=== PATIENT | female | born 1955 | race Caucasian/White ===

== ENCOUNTER 2017-01-27 20:47 | Inpatient (IN) | payer OTHER ==
[~2017-01-27] VITALS: Ht 157.5 cm; Wt 86.2 kg
--- NOTE | ~2017-01-27 | HP ---
Unit #: [id number] #: [id number] Patient: PAYAL RAUSCH [id number] [address] [place], [place] [address] [id number] I MR#: [id number] NAME: PAYAL RAUSCH ROOM: 335 Age: 61 Sex: F Admission Date: 01/28/2017 : 1955 Attending Physician: Gilda Rose M.D. Primary Care Physician: No Primary Care Physician HISTORY AND PHYSICAL CHIEF COMPLAINT Vertigo, nausea, vomiting, headache with uncontrolled hypertension and diabetes. HISTORY This pleasant 61-year-old female with hypertension and AODM, out of medications for the past six months, is admitted for vertigo. The patient was in her usual state of health until 5:30 last evening. While at work, she developed sudden onset of vertigo with nausea and vomiting. Around 6 p.m. developed a generalized headache. Went to her car and sat for some time as she was unable to drive. I am told that a co-worker called an ambulance and the patient was brought to this facility. She looked to be quite ill initially and quite diaphoretic. Blood pressure 180/90. She was treated with Zofran, bolused with IV fluids, given 10 mg of IV Decadron without improvement. She had a stat CTA and CT of her head. She was also seen by the [facility]. She is currently feeling somewhat improved but is still experiencing headache, nausea and vomiting. The vertigo is worse with movement. CT did show old lacunar CVAs but nothing new. In addition to the above, the patient does have severe dental caries and is experiencing dental pain. Needs referral to a dentist. PAST MEDICAL HISTORY 1. Essential hypertension. 2. AODM. 3. Benign cyst removed from the left breast. ALLERGIES None. HOME MEDICATIONS None. The patient was previously taking metformin 500 mg p.o. b.i.d. and lisinopril 20 mg daily. Has been out of these medications for the past six months. FAMILY HISTORY CVA. SOCIAL HISTORY The patient lives with her daughter and son-in-law. She smokes one pack per day of tobacco, does not drink alcohol. REVIEW OF SYSTEMS Unit #: [id number] #: [id number] Patient: PAYAL RAUSCH Notable for headache, nausea, vomiting, vertigo, AODM, dental pain, tobacco use, cyst removed from the breast. All other systems were reviewed and otherwise negative. PHYSICAL EXAMINATION GENERAL APPEARANCE: 61-year-old, moderately obese female, who looks to be uncomfortable. VITAL SIGNS: Temperature 97.4, pulse 86, respirations 20, blood pressure 180/90. O2 saturation is 94% on room air. HEENT: Eyes PERRLA. Extraocular muscles are intact. No nystagmus. TMs are clear bilaterally. Oropharynx reveals significant dental caries. NECK: Supple without adenopathy or thyromegaly. CHEST: Clear. CARDIAC: Normal S1 and S2 without S3, S4 or murmur. ABDOMEN: Bowel sounds are present. No hepatosplenomegaly, tenderness or masses. EXTREMITIES: Without clubbing, cyanosis or edema. Pedal pulses are present. No ulcers on the feet. NEUROLOGIC EXAM: The patient is awake, alert, oriented. Her cranial nerves are intact. She has slight slurring of her speech but I think this may be due to her dental pain. She has +5 out of 5 strength throughout. Normal rapid alternating movements. Negative pronator drift. I did not sit the patient up due to her vertigo, however. DIAGNOSTIC STUDIES LABORATORY: Admission labs - hematocrit 43.8, white blood count 15.4, normal platelet count. SMA-12 - glucose 242, potassium 3.4. Cardiac markers are negative. IMAGING: CTA of the head and neck show no thrombosis or occlusion. There is some narrowing of the right vertebral artery, mild plaquing of the carotid bulbs and proximal internal carotid arteries. CTA of the head shows scattered small vessel ischemic disease with chronic lacunar infarcts in the bibasilar ganglia and left cerebellar hemisphere. CARDIOVASCULAR: EKG shows a sinus rhythm, rate 64 with T wave inversions noted V1 through V5 without previous EKG for comparison. ASSESSMENT 1. Vertigo, nausea, vomiting and headache: This may represent inner ear pathology such as acute labyrinthitis. Rule out central etiology. The patient was seen by the [facility] in the ER. 2. Uncontrolled hypertension: The patient ran out of her medicines. 3. Uncontrolled diabetes mellitus: Patient was out of her medicines. 4. Dental caries with dental pain. 5. Smoking. PLANS 1. IV fluids and supportive treatment. Will give Antivert and Zofran. Will hold further Decadron given hyperglycemia. 2. Sliding scale insulin. At the time of discharge, the patient will need prescriptions for metformin. 3. Restart lisinopril. Patient will need a prescription at the time of discharge as well. 4. Smoking cessation counseling. 5. MRI and neurology to see. Aspirin is being started in the ER. Unit #: [id number] #: [id number] Patient: PAYAL RAUSCH 6. SCDs for DVT prophylaxis. 7. Amoxicillin. Will given patient names of dentists. She is self pay. 8. Repeat cardiac enzymes. 9. SCDs for DVT prophylaxis. 10. Further workup depending on above. Dictated by Jaylen Smart/df TD: 01/28/2017 05:31 JOB #: [id number] HISTORY AND PHYSICAL Page 1 of 1 X Gilda Rose MD X HISTORY AND PHYSICAL
--- NOTE | ~2017-01-27 | EKG ---
PATIENT: PAYAL RAUSCH UNIT #: [id number] Ventricular Rate: 64 BPM Atrial Rate: 64 BPM P-R Interval: 170 ms QRS Duration: 94 ms Q-T Interval: 468 ms QTC Calculation(Bezet): 482 ms P [place]: 48 degrees Calculated R [place]: -9 degrees Calculated T [place]: 27 degrees Diagnosis Line: Sinus rhythm with marked sinus arrhythmia Diagnosis Line: Minimal voltage criteria for LVH, may be normal Diagnosis Line: variant Diagnosis Line: ST and T wave abnormality, consider anterior Diagnosis Line: ischemia Diagnosis Line: Prolonged QT Diagnosis Line: Abnormal ECG Diagnosis Line: No previous ECGs available Diagnosis Line: Confirmed by LILIA RILEY MD ([id number]) on 01/29/2017 Diagnosis Line: 8:26:20 AM INTERPRETING MD: ROSEMARY TELLES
--- NOTE | ~2017-01-27 | DS ---
Unit #: [id number] #: [id number] Patient: PAYAL RAUSCH [id number] [address] [address] [id number] I MR#: [id number] NAME: PAYAL RAUSCH ROOM: 335 Age: 61 Sex: F Admission Date: 01/28/2017 : 1955 Discharge Date: 01/29/2017 Attending Physician: Melissa Adamson M.D. Primary Care Physician: No Primary Care Physician DISCHARGE SUMMARY REASON FOR ADMISSION Vertigo, nausea and vomiting, intractable headache. HISTORY OF PRESENT ILLNESS/HOSPITAL COURSE The patient is a very pleasant 61-year-old female who moved from [place] approximately one year ago. Off and on she has been unable to get her medications secondary to lack of insurance. She had missed the window at her employer for open enrolling. She stated that she was trying to get by taking some of her medications on an ajieh-kcupz-kos basis. She apparently had gone to work. She began feeling dizzy. The room began to spin around her. She sat in her car for approximately three hours waiting for it to resolve. It did not. Subsequently EMS services were called. The patient was brought to the hospital for further evaluation. The patient underwent a CT of the head noncontrast, which did not show any acute process. Consultation was subsequently placed to neurology services. Dr. Jett and associates saw and evaluated the patient. Through this hospital course the patient did undergo an MRI of the brain without contrast for possible rule out of cerebrovascular accident. MRI of the brain did not show any evidence of any recent ischemic insult. There was a moderate probable sequelae of small vessel disease which was noted. The patient underwent CT angiogram of the head and neck on 01/27/2017 as per stroke protocol. It did not show any acute process. There was no hemodynamically significant narrowing suspected of either carotid bifurcation. From a neurology standpoint the patient was cleared for discharge. The patient's hemoglobin A1c was noted to be 10.4 this hospital admission. The patient did undergo routine cardiac enzymes, which were otherwise unremarkable. The patient's BMP is relatively unremarkable with a creatinine of 0.8 and glucose 254. It seems likely that the patient does have underlying benign positional proximal vertigo of undefined/unclear etiology. The patient was also noted not being able to fill her prescription secondary to lack of insurance. Therefore, she was given all prescription and they were all rewritten and filled at [facility] prior to discharge. Unit #: [id number] #: [id number] Patient: PAYAL RAUSCH At this point in time the patient is clinically stable for discharge home. She was asked to follow up at the [facility]. She will be enrolling with her routine insurance in April 2017. At that point in time she should have routine followup with her primary care physician in regard to her history of diabetes as well as hypertension management. FINAL DISCHARGE DIAGNOSES 1. Vertigo, likely secondary to benign positional proximal nature. 2. Hypertensive encephalopathy/urgency on admission. 3. Headache, tension versus migraine. 4. Type 2 diabetes. Poorly controlled. 5. Noncompliance with medications. 6. Dental cares with poor dental hygiene. 7. Tobacco abuse. 8. Obesity. FINAL DISCHARGE MEDICATIONS 1. Aspirin 81 mg p.o. daily. 2. Meclizine 25 mg p.o. q.8 h. p.r.n., #30 prescription given. 3. Augmentin 875 mg p.o. b.i.d. times 7 days. 4. Pravastatin 40 mg p.o. at nighttime. 5. Lisinopril 40 mg p.o. daily. 6. Metformin 1000 mg p.o. b.i.d. 7. Glucotrol 5 mg p.o. daily. DISCHARGE CONDITION Stable. DISPOSITION Home. Dictated by... Jaylen Barton/vic TD: 01/31/2017 10:19 JOB #: [id number] DISCHARGE SUMMARY Page 1 of 1 X Richy Beltran MD X DISCHARGE SUMMARY
--- NOTE | ~2017-01-27 | CO ---
Unit #: [id number] #: [id number] Patient: PAYAL RAUSCH [id number] [facility] [address] [place], [place] [address] [id number] Amanda MR#: [id number] NAME: PAYAL RAUSCH ROOM: 335 Age: 61 Sex: F Admission Date: 01/28/2017 : 1955 Attending Physician: Melissa Adamson M.D. Consultation Date: 01/28/2017 CONSULTATION REPORT REFERRING PHYSICIANS Dr. Gilda Guzmán REASON FOR CONSULTATION Vertigo, nausea, and vomiting. Code Stroke was initiated yesterday. PATIENT IDENTIFICATION This is a 61-year-old right-handed white female who was evaluated in room 335 at [facility]. SOURCE OF INFORMATION The patient, evaluation done by the admitting team, and my discussion with ER team. PROBLEM LIST 1. Essential hypertension. 2. Adult-onset diabetes mellitus. 3. Benign cyst removed from left breast. 4. Dental caries. 5. Noncompliance with her medication. HISTORY OF PRESENT ILLNESS This is a 61-year-old female with problems as above who presented with acute onset of vertigo, nausea, and vomiting. This was probably between 5:30 and 6:00. When she came to the hospital, I believe it was somewhere around 8:30. She was evaluated, and then I got a call from the ER physician, and I discussed it with him, and the decision was made to at least get a CT and CTA, and I would review the case with Alejandra Meza and I did. She had mild dysarthria which was clearing, and there was no other deficit. There was no ataxia, so we gave her some Zofran, and I wanted her to be admitted and get an MRI. Her CT and CTA showed some chronic small vessel-type disease but nothing else. When she came in, the first blood pressure was 180/90, but again, there were other values which were 92 diastolic, and early in the morning, her blood pressure did show up the true problem that she has, and we had documented 197 systolic and 122 diastolic. She is a bit better now. She was never ataxic and had no loss of vision, no double vision, and no swallowing or breathing problems. There was no speech problem, but a little bit of dysarthria or not clear speech. Her MRI confirmed significant small vessel disease and old lacunar-type disease especially in basal ganglia and also some in the left cerebellum. She is otherwise doing better. Unit #: [id number] #: [id number] Patient: PAYAL RAUSCH She has been noncompliant with her medication. Her random glucose was 342 when she came in. Her other labs are pending. No falls, no injuries, no migraines, no seizures. She had some headaches which have somewhat improved. PAST MEDICAL HISTORY As discussed above. PAST SURGICAL HISTORY As discussed above. ALLERGIES None. HOME MEDICATIONS She has not been taking her medications for about two to six months now. She was on metformin 500 mg b.i.d., lisinopril 20 mg daily, and aspirin off and on. FAMILY HISTORY Stroke. SOCIAL HISTORY Patient lives with her daughter and son-in-law. She smokes about a pack a day and does not drink alcohol. REVIEW OF SYSTEMS GENERAL: Mild headaches and dizziness. No weight issues and no sleep problems, fever, chills, rigors, or sweats. HEENT: Mild headache. No neck problem. CARDIOVASCULAR: No chest pain, clubbing, cyanosis, orthopnea, or palpitations. PULMONARY: No shortness of air, cough, or expectoration. GASTROINTESTINAL: No (1) diarrhea, or constipation. GENITOURINARY: No genitourinary symptoms. EXTREMITIES: No extremity problems. BACK: No back problems. PSYCHIATRIC: No psychiatric issues. NEUROLOGIC: Issues as discussed. ENDOCRINE: She has diabetes and no other endocrine problem. HEMATOLOGIC: No hematologic problems. DERMATOLOGIC: No dermatologic problems. PHYSICAL EXAMINATION VITAL SIGNS: Temperature 97.6, pulse 81, respirations 18, and blood pressure 169/70. Pain was 9 out of 10. O2 saturations were 93% to 97%. Weight of 190 pounds. BMI was 34. NEUROLOGICAL EXAMINATION MENTAL STATUS: Patient is awake. She is alert. She is essentially oriented except she thinks it is the 5th instead of the 4th. She can name and she can follow commands. No aljkl-dm-uxgi confusion. No finger agnosia. CRANIAL NERVES: Full rincon of vision to confrontation. Photoscopic examination was not successful. Pupils were round and reactive to light and accommodation. Size was about 3 mm. No ptosis and no nystagmus was seen. Sensation on the face and scalp was normal. Strength of muscles of Unit #: [id number] #: [id number] Patient: PAYAL RAUSCH facial expression was normal. Hearing seemed to be intact bilaterally. No nuchal rigidity. Head turning was spontaneous. Shoulder shrugs were normal. MOTOR: Normal bulk, tone, and strength was essentially 5 over 5. SENSORY: Intact for soft touch and pain sensation. No extinction was seen. Romberg was not evaluated. GAIT: Deferred. REFLEXES: I could not get any reflexes. COORDINATION: Normal. Qyzras-qh-bpjh-to-finger. DIAGNOSTIC STUDIES LABORATORY: Reviewed. IMAGING: Reviewed. IMPRESSION Headaches and dizziness. Most likely hypertensive encephalopathy is going to be the top of my diagnoses. This does not look like transient ischemic attack, and there is no stroke. There are some chronic small vessel changes. PLAN 1. Aggressive blood pressure control. 2. Get diabetes control, check her labs, check her UA, and put her on 81 mg aspirin. Compliance, compliance, compliance. 3. Smoking cessation. 4. If her symptoms do not improve, especially headache as the issue with the blood pressure is okay, will consider other options including (2) . It does not look like she is somebody with meningitis-like picture. There is no hemorrhage. 5. Call me with any other questions, issues, or concerns. The case was discussed with Dr. Adamson who is going to be taking over. Follow up in Neurology if needed, and I told her that we will ask Take Out Waiter/Waitress to help her with getting help in medication and followups. 1. Dictated by... Jaylen Gonzalez TD: 01/30/2017 14:24 JOB #: [id number] CONSULTATION REPORT Page 1 of 1 X Laureen Jett MD CONSULTATION REPORT
--- NOTE | ~2017-01-27 | MR18 ---
[facility] A Service of [facility] RADIOLOGY TEXT RESULTS PATIENT: PAYAL RAUSCH LOCATION: [facility] 335-01 : 59 UNIT #: [id number] AGE: [address]: Melissa Adamson MD SEX: F ORDER DR: [id number] [facility] [address] [place], [place] [address] [id number] I MR#: [id number] Acc #: [id number] NAME: PAYAL RAUSCH : 1955 SEX: F STUDY DATE/TIME: 01/28/2017 10:41 UNIT: A PCU ROOM: [facility] STUDY DESCRIPTION: MR Brain Wo Contrast Attending Physician: Melissa Adamson M.D. Ordering Physician: Gilda Rose M.D. Primary Care Physician: No Primary Care Physician MRI CENTER REPORT This report is preliminary unless electronic signature is present. EXAM MRI brain without HISTORY Rule out CVA. History of a 61-year-old female with sudden onset dizziness at work on 01/28/2017. Noncompliant on hypertension medications with nausea and vomiting yesterday complaining of headache with vomiting. COMMENT MRI of the brain was performed without contrast using routine 1.5T imaging technique. COMPARISON Head CT is from 01/27/2017. FINDINGS There is no evidence for a recent ischemic insult on the diffusion series. There is no MRI evidence for a recent intracranial hemorrhage. There is no extraaxial fluid collection. There is mild cerebellar tonsillar ectopia. The major arterial intracranial flow voids are maintained. There is a small chronic lacune in the left cerebellar hemisphere and there are multiple insults in the base ganglia bilaterally, right greater than left. There is also moderate white matter signal abnormality most confluent with periatrial white matter. This is all likely due to small vessel disease, none in history provided. There is no intracranial mass effect. No extraaxial fluid is suspected. The basilar cisterns are patent. Mastoid air cells are clear. The visualized paranasal sinuses are clear. IMPRESSION 1. No evidence for a recent ischemic insult on the diffusion series. 2. Moderate probable sequelae of small vessel disease. [facility] A Service of [facility] RADIOLOGY TEXT RESULTS PATIENT: PAYAL RAUSCH LOCATION: [facility] 335-01 : [birth year] UNIT #: [id number] AGE: [address]: Melissa Adamson MD SEX: F ORDER DR: STAT * RESULT Dictated by... Nancy Bradley M.D. THIS IS AN ELECTRONICALLY VERIFIED REPORT Nancy Bradley M.D. at 01/28/2017 5:46 PM DIEGO/alejo TD: 01/28/2017 13:26 JOB #: [id number] MRI CENTER REPORT Page 1 of 1 COPY
--- NOTE | ~2017-01-27 | CT71 ---
[facility] A Service [facility] RADIOLOGY TEXT RESULTS PATIENT: PAYAL RAUSCH LOCATION: [facility] 335-01 : 59 UNIT #: [id number] AGE: [address]: Melissa Adamson MD SEX: F ORDER DR: [id number] [facility] [address] [place], [place] [address] [id number] I MR#: [id number] Acc #: [id number] NAME: PAYAL RAUSCH : 1955 SEX: F STUDY DATE/TIME: 01/27/2017 21:46 [facility] [id number] STUDY DESCRIPTION: CT Head Wo Contrast Attending Physician: Gilda Rose M.D. Ordering Physician: Gideon Guzmán D.O. Primary Care Physician: Primary Care Physician No MEDICAL IMAGING REPORT This report is preliminary unless electronic signature is present EXAM CT head without contrast DATE 01/27/2017 at 21:46 HISTORY 57-year-old female with nausea, vomiting, dizziness, lethargy, slurred speech, weakness, with sudden onset at work at 17:30 today. Noncompliant with blood pressure medicines for 6 months. COMPARISON None. FINDINGS This CT exam was performed with one or more of the following radiation dose reduction techniques: Automatic exposure control, adjustment of mA and/or kV according to patient size, and iterative reconstruction. Scattered hypodensities within the deep white matter of the brain are nonspecific but are favored to represent changes of chronic microvascular disease. Moreno matter-white matter junction distinction appears preserved, without convincing CT evidence of acute infarct. Tiny lacunar type infarcts are thought to be present within the bilateral basal ganglia. Chronic appearing lacunar infarct within the left cerebellar hemisphere. No acute intracranial hemorrhage, mass lesion, mass effect or midline shift is seen and the ventricular configuration is normal. Calvarium is within normal limits. Paranasal sinuses and mastoid air cells are clear. IMPRESSION 1. Scattered mild chronic microvascular disease changes with chronic-appearing lacunar infarcts in the bilateral basal ganglia and within the left cerebellar hemisphere. [facility] A Service [facility] RADIOLOGY TEXT RESULTS PATIENT: PAYAL RAUSCH LOCATION: [facility] 335-01 : 59 UNIT #: [id number] AGE: [address]: Melissa Adamson MD SEX: F ORDER DR: 2. No acute intracranial findings. 3. If patient stroke-like symptoms persist, consider correlation to MRI brain stroke protocol. Dictated by... Brenda Krishnan M.D. THIS IS AN ELECTRONICALLY VERIFIED REPORT Brenda Krishnan M.D. at 01/31/2017 8:42 AM AKI/get TD: 01/28/2017 01:30 JOB #: [id number] MEDICAL IMAGING REPORT Page 1 of 1 COPY
--- NOTE | ~2017-01-27 | EKG ---
PATIENT: PAYAL RAUSCH UNIT #: [id number] Ventricular Rate: 63 BPM Atrial Rate: 63 BPM P-R Interval: 134 ms QRS Duration: 90 ms Q-T Interval: 442 ms QTC Calculation(Bezet): 452 ms P [place]: 37 degrees Calculated R [place]: -3 degrees Calculated T [place]: 6 degrees Diagnosis Line: Normal sinus rhythm Diagnosis Line: Minimal voltage criteria for LVH, may be normal Diagnosis Line: variant Diagnosis Line: ST and T wave abnormality, consider anterolateral Diagnosis Line: ischemia Diagnosis Line: Abnormal ECG Diagnosis Line: When compared with ECG of 28-JAN-2017 06:15, Diagnosis Line: No significant change was found Diagnosis Line: Confirmed by LILIA RILEY MD ([id number]) on 02/01/2017 Diagnosis Line: 6:56:18 AM INTERPRETING MD: ROSEMARY TELLES
--- NOTE | ~2017-01-27 | EKG ---
PATIENT: PAYAL RAUSCH UNIT #: [id number] Ventricular Rate: 73 BPM Atrial Rate: 73 BPM P-R Interval: 148 ms QRS Duration: 94 ms Q-T Interval: 456 ms QTC Calculation(Bezet): 502 ms P [place]: 35 degrees Calculated R [place]: -3 degrees Calculated T [place]: -45 degrees Diagnosis Line: Normal sinus rhythm Diagnosis Line: Minimal voltage criteria for LVH, may be normal Diagnosis Line: variant Diagnosis Line: ST and T wave abnormality, consider anterolateral Diagnosis Line: ischemia Diagnosis Line: Prolonged QT Diagnosis Line: Abnormal ECG Diagnosis Line: No previous ECGs available Diagnosis Line: Confirmed by LILIA RILEY MD ([id number]) on 01/29/2017 Diagnosis Line: 8:30:39 AM INTERPRETING MD: ROSEMARY TELLES
--- NOTE | ~2017-01-27 | CT17 ---
[facility] A Service of [facility] RADIOLOGY TEXT RESULTS PATIENT: PAYAL RAUSCH LOCATION: [facility] 335-01 : 59 UNIT #: [id number] AGE: [address]: Melissa Adamson MD SEX: F ORDER DR: [id number] [facility] [address] [place], [place] [address] [id number] I MR#: [id number] #: [id number] NAME: PAYAL RAUSCH : 1955 SEX: F STUDY DATE/TIME: 01/27/2017 21:48 [facility] RO[facility]: [facility] STUDY DESCRIPTION: CT Angio Head Attending Physician: Melissa Adamson M.D. Ordering Physician: Gideon Guzmán D.O. Primary Care Physician: Primary Care Physician No MEDICAL IMAGING REPORT This report is preliminary unless electronic signature is present REVISED REPORT SEE ADDENDUM EXAM CT angiogram of the head and neck HISTORY 61-year-old female with nausea, vomiting, dizziness, lethargy and slurred speech, weakness, sudden onset at 17:30 at work. Patient noncompliant with hypertensive medications for 6 months. Wet reading provided by Dr. david Krishnan 22:51 01/27/2017. COMMENT CT angiography head and neck vessels performed during the intravenous administration 100 mL of Isovue-370. Imaging acquired in the axial plane followed by multiple reconstructed and reformatted images for the purpose of 3-D CT angiography of the head and neck vessels. This CT examination was performed with one or more of the following radiation dose reduction techniques: automatic exposure control, adjustment of mA and/or kV according to patient size, and iterative reconstruction. Earlier head CT is from the same day. CT ANGIOGRAM NECK: Aortic arch branch pattern is normal. There is some atherosclerotic vascular calcifications at the origin of the left subclavian but this does not appear to result in hemodynamically significant stenosis. Right carotid system shows some plaque at the right carotid bifurcation which is partially calcified but by NASCET criteria less than 10% diameter stenosis is suspected. The siphon is widely patent. Assessment of left carotid system shows mild partly calcified plaque at the left carotid bifurcation. By NASCET criteria less than 10% diameter stenosis is suspected. The left carotid siphon is widely patent. The right vertebral artery is mildly tortuous at its origin. There is probably mild narrowing at the origin. It is otherwise patent in the neck [facility] A Service of [facility] RADIOLOGY TEXT RESULTS PATIENT: PAYAL RAUSCH LOCATION: A 335- : 59 UNIT #: [id number] AGE: [address]: Melissa Adamson MD SEX: F ORDER DR: and provides supply to the basilar. The left vertebral artery is the dominant vessel. It is patent throughout and supplies the basilar. Evaluation of the intracranial circulation is currently limited improper reformatting of the twist and tumble MIPs. This has been brought to the attention of the CT specialist and corrected images are pending. In the meantime, I do not see evidence for intracranial vascular cutoff. The report will be addended when the additional views are available. The distal right vertebral artery is more hypoplastic after the origin of the PICA. There is origin to the right posterior cerebral artery distribution and the right P1 vessel is either very hypoplastic or aplastic. Otherwise no focal central stenosis is suspected. There is also a significant sized left posterior communicator but the left P1 vessel is present, though mildly diminished in size. The dural venous sinuses are grossly patent. There are degenerative changes in the cervical spine. There is some artifact from dental metal and there is evidence for dental disease. Followup with a dental examination is recommended with multiple lucencies around tooth roots concerning for dental infection. If there is an anterior communicator present, it is not of significant size. IMPRESSION 1. By NASCET criteria, no hemodynamically-significant narrowing is suspected at either carotid bifurcation. Both vertebral arteries are patent. The left is dominant and there may be some mild narrowing at the origin of the right. 2. No intracranial vascular cutoff or focal central stenosis. Vascular variations are detailed above. 3. Evidence of dental disease. Recommend correlation with a dental examination and follow up. STAT * RESULT Dictated by... Nancy Bradley M.D. THIS IS AN ELECTRONICALLY VERIFIED REPORT Nancy Bradley M.D. at 01/28/2017 5:41 PM Sharmila TD: 01/28/2017 07:49 JOB #: [id number] ADDENDUM The proper twist and tumble MIP reformatted images have been submitted for [facility] A Service of [facility] RADIOLOGY TEXT RESULTS PATIENT: PAYAL RAUSCH LOCATION: [facility] 335-01 : [birth year] UNIT #: [id number] AGE: [address]: Melissa Adamson MD SEX: F ORDER DR: review. Again, there is nothing to suggest vascular cutoff or focal central stenosis. STAT * RESULT Dictated by... Nancy Bradley M.D. THIS IS AN ELECTRONICALLY VERIFIED REPORT Nancy Bradley M.D. at 02/03/2017 9:50 AM Jumana TD: 01/28/2017 08:55 JOB #: [id number] MEDICAL IMAGING REPORT Page 1 of 1 COPY
--- NOTE | ~2017-01-27 | CT23 ---
[facility] A Service of [facility] & [facility] RADIOLOGY TEXT RESULTS PATIENT: PYAAL RAUSCH LOCATION: [facility] 335-01 : 59 UNIT #: [id number] AGE: [address]: Melissa Adamson MD SEX: F ORDER DR: [id number] [facility] [address] [place], [place] [address] [id number] I MR#: [id number] Acc #: [id number] NAME: PAYAL RAUSCH : 1955 SEX: F STUDY DATE/TIME: 01/27/2017 21:48 UNIT: [address] ROOM: [facility] STUDY DESCRIPTION: CT Angio Neck Attending Physician: Melissa Adamson M.D. Ordering Physician: Gideon Guzmán D.O. Primary Care Physician: Primary Care Physician No MEDICAL IMAGING REPORT This report is preliminary unless electronic signature is present EXAM CT angiogram of the neck FINDINGS Please see CT angiogram of the head for results. STAT * RESULT Dictated by... Nancy Bradley M.D. THIS IS AN ELECTRONICALLY VERIFIED REPORT Nancy Bradley M.D. at 01/28/2017 5:41 PM DIEGO/awilda TD: 01/28/2017 07:50 JOB #: [id number] MEDICAL IMAGING REPORT Page 1 of 1 COPY
[2017-01-27 22:10] LABS: POC - CREATININE 0.79 mg/dL (0.44-1.03); POC - GFR >60.0 mL/min (>60)
[2017-01-27 23:21] LABS: BASOPHIL# 0.1 X10e3 (0-0.3); BASOPHIL% 0.3 % (0-2.5); DIFF IND YES; EOSINOPHIL% 0.2 % (0.0-7.0); HEMATOCRIT 43.8 % (35.0-45.0); HEMOGLOBIN 15.1 gm/dL (12.0-16.0); LYMPHOCYTE# 1.8 X10e3 (1.0-3.5); LYMPHOCYTE% 11.5 % (17.0-45.0); MEAN CELL VOLUME 91.4 FL (83-96); MEAN CORPUSCULAR HEMOGLOBIN 31.4 PG (28-34); MEAN CORPUSCULAR HGB CONC 34.3 g/dL (30-36); MEAN PLATELET VOLUME 9.1 FL (6.5-11.5); MONOCYTE# 0.5 X10e3 (0-1.0); MONOCYTE% 3.1 % (3.0-12.0); NEUTROPHIL# 13.1 X10e3 (1.5-7.1); NEUTROPHIL% 84.9 % (40-75); PLATELET COUNT 208 X10e3 (140-420); RED CELL DISTRIBUTION WIDTH 13.1 % (11.0-15.5); WHITE BLOOD COUNT 15.4 X10e3 (4.0-10.5)
[2017-01-27 23:30] LABS: POC - CKMB 3.4 ng/mL (0.0-7.9); POC - TROPONIN <0.05 ng/mL (<=0.05)
[2017-01-27 23:46] LABS: ALBUMIN SERUM 4.6 g/dL (3.5-5.0); BILIRUBIN, DIRECT 0.1 mg/dL (0.0-0.2); BILIRUBIN,INDIRECT 0.9 mg/dL (0.0-0.9); BUN/CREATININE RATIO 23.33; CALCIUM SERUM 9.4 mg/dL (8.4-10.2); CREATININE SERUM 0.6 mg/dL (0.6-1.4); GLOM FILT RATE Estimated 99.8 mL/min (>60); POTASSIUM 3.4 mmol/L (3.5-5.1); PROTEIN TOTAL SERUM 8.3 g/dL (6.0-8.3)
[2017-01-27 23:48] LABS: ANISOCYTOSIS SL; PLATELET ESTIMATE NORMAL (NORMAL)
[2017-01-28] MEDS ORDERED: NO MEDICATIONS (01:07)
[2017-01-28 01:22] LABS: POC - TROPONIN <0.05 ng/mL (<=0.05)
[2017-01-28 07:47] LABS: HEMOGLOBIN 14.4 gm/dL (12.0-16.0); MEAN CELL VOLUME 91.7 FL (83-96); MEAN CORPUSCULAR HEMOGLOBIN 31.4 PG (28-34); MEAN CORPUSCULAR HGB CONC 34.2 g/dL (30-36); MEAN PLATELET VOLUME 9.2 FL (6.5-11.5); RED BLOOD COUNT 4.57 X10e (3.90-5.30); RED CELL DISTRIBUTION WIDTH 13.4 % (11.0-15.5); WHITE BLOOD COUNT 15.4 X10e3 (4.0-10.5)
[2017-01-28 08:30] LABS: BUN/CREATININE RATIO 16.25; CALCIUM SERUM 9.5 mg/dL (8.4-10.2); CREATININE SERUM 0.8 mg/dL (0.6-1.4); GLOM FILT RATE Estimated 80.8 mL/min (>60); POTASSIUM 3.5 mmol/L (3.5-5.1)
[2017-01-28 08:49] LABS: %MB 3.8 % (0.0-4.0); MB 5.3 ng/ml
[2017-01-28 13:51] LABS: CHOLESTEROL 382 mg/dL (0-200); HDL CHOLESTEROL 49 mg/dL (35-95); LDL/HDL RATIO 5 RATIO (0-4); TRIGLYCERIDES 392 mg/dL (10-160)
[2017-01-28 13:52] LABS: LDL CHOLESTEROL 255 mg/dL (-130)
[2017-01-29 09:47] LABS: HEMATOCRIT 39.9 % (35.0-45.0); HEMOGLOBIN 13.6 gm/dL (12.0-16.0); MEAN CELL VOLUME 91.1 FL (83-96); MEAN CORPUSCULAR HEMOGLOBIN 31.2 PG (28-34); MEAN CORPUSCULAR HGB CONC 34.2 g/dL (30-36); MEAN PLATELET VOLUME 9.1 FL (6.5-11.5); RED BLOOD COUNT 4.38 X10e (3.90-5.30); RED CELL DISTRIBUTION WIDTH 13.1 % (11.0-15.5)
[2017-01-29 10:17] LABS: BUN/CREATININE RATIO 31.25; CALCIUM SERUM 9.2 mg/dL (8.4-10.2); CREATININE SERUM 0.8 mg/dL (0.6-1.4); GLOM FILT RATE Estimated 80.8 mL/min (>60); POTASSIUM 3.6 mmol/L (3.5-5.1)
[2017-01-29 10:43] LABS: %MB 3.2 % (0.0-4.0); MB 4.4 ng/ml
[2017-01-29] MEDS ORDERED: ACETAMINOPHEN650 M4 PO (13:50)
[2017-01-29] MEDS ORDERED: MOTION RELIEF25 MG PO (13:51)
[2017-01-29] MEDS ORDERED: LIPITOR40 MG PO (13:51)
[2017-01-29] MEDS ORDERED: ZESTRIL40 MG PO (13:52)
[2017-01-29] MEDS ORDERED: ASPIRIN81 M2 PO (13:53)
[2017-01-29] MEDS ORDERED: AUGMENTIN PO (13:54)
[2017-01-29] MEDS ORDERED: METFORMIN PO (14:02)
[2017-01-29] MEDS ORDERED: GLIPIZIDE XL5 MG PO (14:02)
== END 2017-01-29 15:46 | disposition home or self-care (01) | DRG 78 ==
LOC: CED 20:47 → CEDOF 01-28 00:55 → C3A PCU 01-28 00:55 → CEDOF 01-28 01:10 → C3A PCU 01-28 02:31 → CEDOF 01-28 02:31 → C3A PCU 01-28 06:49
PROVIDERS: Emergency Medicine; Internal Medicine; Psychiatry & Neurology Neurology
PROC: B32RYZZ Computerized Tomography (CT Scan) of Intracranial Arteries using Other Contrast (ICD-10-PCS; principal; 2017-01-28)
PROC: B32GYZZ Computerized Tomography (CT Scan) of Bilateral Vertebral Arteries using Other Contrast (ICD-10-PCS; 2017-01-28)
DX: I67.4 Hypertensive encephalopathy (principal); E87.2 Acidosis; H81.10 Benign paroxysmal vertigo, unspecified ear; E11.65 Type 2 diabetes mellitus with hyperglycemia; I10 Essential (primary) hypertension; Z79.84 Long term (current) use of oral hypoglycemic drugs; K02.9 Dental caries, unspecified; F17.210 Nicotine dependence, cigarettes, uncomplicated; N60.02 Solitary cyst of left breast; Z91.14 Patient's other noncompliance with medication regimen; E66.9 Obesity, unspecified; Z68.34 Body mass index [BMI] 34.0-34.9, adult; G44.209 Tension-type headache, unspecified, not intractable; G43.909 Migraine, unspecified, not intractable, without status migrainosus
CPT/HCPCS: 36415; 70450; 70496; 70498; 70551; 80048; 80061; 80076; 82010; 82550; 82553; 82565; 82947; 83036; 84132; 84443; 84484; 85025; 85027; 93005; 96361; 96374; 96375; 97162; 97166; 99285; J0360; J1100; J1815; J1885; J2405; Q9967